=== PATIENT | female | born 1970 | race Caucasian/White ===

== ENCOUNTER 2019-09-29 16:47 | Inpatient (IN) | payer MEDICAID ==
[~2019-09-29] VITALS: Ht 172.7 cm; Wt 81.6 kg
[2019-09-29 17:31] LABS: BASOPHILS 0.1 % (0-2); EOSINOPHILS 0.3 % (0-7); HEMATOCRIT 45.7 % (36.0-48.0); HEMOGLOBIN 15.2 g/dL (12-16); IMMATURE GRANULOCYTES 0.7 % (0-5); LYMPHOCYTES 14.2 % (15-50); MCHC 33.3 g/dL (31.0-37.0); MCV 93.1 fL (80.0-100.0); MEAN PLATELET VOLUME 9.7 fL (7.4-10.4); MONOCYTES 4.6 % (2-11); NEUTROPHILS 80.1 % (40-80); PLATELET COUNT 240 10x3/uL (130-400); RBC 4.91 10x6/uL (4.00-5.40); RDW 14.4 % (11.5-14.5); WBC 17.4 10x3/uL (4.8-10.8)
[2019-09-29 17:44] LABS: SPECIFIC GRAVITY 1.025 (1.005-1.020)
[2019-09-29 17:45] LABS: BACTERIA FEW /hpf (NEGATIVE); BILIRUBIN NEGATIVE (NEGATIVE); EPITHELIAL CELLS OCC /hpf (0-5); GLUCOSE NEGATIVE (NEGATIVE); KETONE NEGATIVE (NEGATIVE); NITRITE NEGATIVE (NEGATIVE); RED CELLS - URINE 0-5 /hpf (0-5); UROBILINOGEN NORMAL (NORMAL); WHITE CELLS - URINE OCC /hpf (NEGATIVE)
[2019-09-29 17:51] LABS: CALC OSMOLALITY 274 mosm/kg (275-300); CALCIUM 8.6 mg/dL (8.5-10.1); CARBON DIOXIDE 28.9 mmol/L (21.0-32.0); CHLORIDE - SERUM 101 mmol/L (98-107); CREATININE - SERUM 1.2 mg/dL (0.6-1.3); GLUCOSE 164 mg/dL (74-106); POTASSIUM - SERUM 3.6 mmol/L (3.5-5.1); SODIUM 135 mmol/L (136-145); UREA NITROGEN 16 mg/dL (7-18); eGFR NON AFRICAN AMERICAN 51 mL/min (90-120)
[2019-09-29 18:00] VITALS: BP 95/64
[2019-09-29 18:01] LABS: ALBUMIN 3.4 g/dL (3.4-5.0); ALKALINE PHOSPHATASE 102 U/L (30-120); ALT (SGPT) 11 U/L (10-68); AMYLASE - SERUM 34 U/L (25-115); BILIRUBIN - TOTAL 0.63 mg/dL (0.2-1.3); LIPASE 139 U/L (73-393); PROTEIN - SERUM 7.1 g/dL (6.4-8.2); TROPONIN-I < 0.017 ng/mL (0.000-0.060)
--- NOTE | 2019-09-29 18:29 | NUR ---
PT STATES SHE IS HAVING RIGHT LOWER QUAD PAIN. WENT TO SPECIALIST THIS MORNING FOR PREOP APPOINTMNET AND WBC WERE HIGH. THE PAIN STARTED YESTERDAY AT 0200. PT IS NAUSEATED. NO VOMITING OR DIARRHEA. ALERT & ORIENTED X 3. PPPX3. VSS. COLOR APPROPRIATE FOR RACE. RESP EVEN UNLABORED.
--- NOTE | 2019-09-29 20:21 | NUR ---
PT IN BED RESTING AT THIS TIME. BREATHS EVEN. NO NEEDS EXPRESSED AT THIS TIME. NO ACUTE DISTRESS NOTED, WILL CONTIUE TO MONITOR.
[2019-09-29 20:32] VITALS: BP 100/65
--- NOTE | 2019-09-29 22:00 | NUR ---
PT LYING SUPINE IN BED RESTING. SIGNIFICANT OTHER AT BEDSIDE. NO ACUTE DISTRESS NOTED. PT DENIES FURTHER NEEDS AT THIS TIME. WILL CONTINUE TO MONITOR.
[2019-09-29 22:08] VITALS: BP 101/63
[2019-09-30 01:15] VITALS: BP 91/54; BMI 27.4
[2019-09-30 05:18] VITALS: BP 88/55
--- NOTE | 2019-09-30 06:27 | NUR ---
REC'D. FROM ER VIA STRETCHER.ASSISTED TO BED AAO X3.DENIES NAUSEA AT PRESENT TIME STATES ABD. PAIN BETTER FOR RIGHT NOW.INTRODUCED TO ROOM.WILL CONTINUE TO MONITOR FOR ANY CHGES IN CURRENT STATUS AND FOLLOW CURRENT PLAN OF CARE.
[2019-09-30 09:37] VITALS: BP 90/57
--- NOTE | 2019-09-30 12:00 | NUR ---
PT RESTING IN BED. NO SIGNS OF DISTRESS. IV TO LEFT HAND PATENT NO REDNESS OR TENDERNESS. COMPLAINS OF PAIN. ADDRESSED. DENIES ANY FURTHER NEED AT THIS TIME. CALL LIGHT IN REACH. BED LOW POSITION. FAMILY AT BEDSIDE AT THIS TIME.
[2019-09-30 13:16] VITALS: BP 99/52
[2019-09-30 13:53] VITALS: BMI 27.3
[2019-09-30 17:32] VITALS: BP 105/59
[2019-09-30 19:46] VITALS: Ht 172.7 cm; Wt 81.6 kg
[2019-09-30 22:12] VITALS: BP 99/67
[2019-10-01 00:56] VITALS: BP 100/73
--- NOTE | 2019-10-01 04:19 | NUR ---
9079) DR CARVALHO HERE CALLED BACK TO GIVE PO MAG CITRATE. INFORMED HAD JUST GIVEN ZOFRAN FOR NAUSEA NO EMESIS.STATES TRY TO GET GET HER TO DRINK MUCH POSSIBLE BE MIDNITE.STATES I CAN'T
[2019-10-01 04:46] VITALS: BP 112/61
[2019-10-01 05:32] LABS: BASOPHILS 0.1 % (0-2); EOSINOPHILS 0.5 % (0-7); HEMATOCRIT 38.3 % (36.0-48.0); HEMOGLOBIN 12.5 g/dL (12-16); IMMATURE GRANULOCYTES 0.6 % (0-5); LYMPHOCYTES 19.7 % (15-50); MCH 30.6 pg (26.0-34.0); MCHC 32.6 g/dL (31.0-37.0); MCV 93.9 fL (80.0-100.0); MEAN PLATELET VOLUME 9.7 fL (7.4-10.4); MONOCYTES 6.4 % (2-11); NEUTROPHILS 72.7 % (40-80); RBC 4.08 10x6/uL (4.00-5.40); RDW 13.9 % (11.5-14.5)
[2019-10-01 05:37] LABS: PLATELET COUNT 170 10x3/uL (130-400); WBC 9.2 10x3/uL (4.8-10.8)
[2019-10-01 05:40] LABS: ANION GAP 9.1 mmol/L (8-16); CALCIUM 7.6 mg/dL (8.5-10.1); CREATININE - SERUM 0.9 mg/dL (0.6-1.3); MAGNESIUM - SERUM 1.9 mg/dL (1.8-2.4); PHOSPHOROUS 2.7 mg/dL (2.5-4.9); POTASSIUM - SERUM 4.1 mmol/L (3.5-5.1)
[2019-10-01 08:45] VITALS: BP 105/66
--- NOTE | 2019-10-01 11:36 | NUR ---
OFF FLOOR AT THIS TIME TO SURGERY SUITE. STABLE CONDITION UPON DEPARTURE.
[2019-10-01 13:22] LABS: HCG SERUM NEGATIVE (NEGATIVE)
[2019-10-01 14:46] VITALS: BP 129/74
--- NOTE | 2019-10-01 15:16 | NUR ---
PATIENT BACK FROM SURGERY. VS STABLE. CL IN REACH. FAMILY IN ROOM.
--- NOTE | 2019-10-01 22:01 | NUR ---
PATIENT IS LYING IN BED, AAOX4, NO RESP. DISTRESS, REPORTS THAT SHE MAINLY FEELS PAIN ONLY WHEN SHE MOVES, PATIENT HAS A MORPINE PUMP. IV SITE TO RIGHT HAND IS PATENT. PATIENT HAS 3 SMALL BAND-AID DRESSINGS TO ABDOMEN THAT ARE CLEAN AND DRY, NO SWELLING TO ABDOMEN. CALL LIGHT WITHIN REACH
[2019-10-01 23:12] VITALS: BP 112/70
[2019-10-02 04:35] VITALS: BP 119/70
[2019-10-02 06:01] LABS: BASOPHILS 0.1 % (0-2); EOSINOPHILS 0.4 % (0-7); HEMATOCRIT 39.4 % (36.0-48.0); HEMOGLOBIN 12.8 g/dL (12-16); IMMATURE GRANULOCYTES 0.4 % (0-5); LYMPHOCYTES 19.5 % (15-50); MCH 30.3 pg (26.0-34.0); MCHC 32.5 g/dL (31.0-37.0); MCV 93.4 fL (80.0-100.0); MEAN PLATELET VOLUME 9.7 fL (7.4-10.4); MONOCYTES 5.4 % (2-11); NEUTROPHILS 74.2 % (40-80); PLATELET COUNT 170 10x3/uL (130-400); RBC 4.22 10x6/uL (4.00-5.40); RDW 13.7 % (11.5-14.5); WBC 10.2 10x3/uL (4.8-10.8)
[2019-10-02 06:36] LABS: ANION GAP 10.8 mmol/L (8-16); CALCIUM 7.8 mg/dL (8.5-10.1); CARBON DIOXIDE 25.1 mmol/L (21.0-32.0); CREATININE - SERUM 0.9 mg/dL (0.6-1.3); MAGNESIUM - SERUM 1.7 mg/dL (1.8-2.4); PHOSPHOROUS 2.8 mg/dL (2.5-4.9); POTASSIUM - SERUM 3.9 mmol/L (3.5-5.1)
[2019-10-02 07:55] VITALS: BP 133/76
[2019-10-02 09:21] VITALS: BP 111/76
--- NOTE | 2019-10-02 10:31 | NUR ---
USING THE DOUBLE END TENON OPERATOR FOR PAIN CONTROL, HAVING TO VOID FREQUENTLY. PASSING GAS, 3 LAP SITES C/D/I.
--- NOTE | 2019-10-02 12:48 | NUR ---
NUTRITION F/U CHART REVIEWED. PT REPORTS SHE DID NOT FEEL LIKE EATING CLEAR LIQUID DIET THIS AM. WILL CONTINUE TO PROVIDE QAMAR, MONITOR PO INTAKE AND PT PROGRESS. RD FOLLOWING
[2019-10-02 13:12] VITALS: BP 109/69
--- NOTE | 2019-10-02 15:17 | NUR ---
NEW IV STARTED TO THE LEFT INNER ARM, 22 G. SHE HAS BEEN WALKING IN TO THE BATHROOM AND BACK. SHE DOES NOT WANT TO WALK IN THE HALLWAY. SHE IS TOLERATING SMALL AMOUNTS OF CLEAR LIQUIDS.
--- NOTE | 2019-10-02 15:33 | NUR ---
SHE HAS BEEN WALKING IN THE HALLWAY NOW. USING THE PLANT AND INSTRUMENT ENGINEER.
[2019-10-02 16:24] VITALS: BP 140/79
--- NOTE | 2019-10-02 16:55 | MORECARE ---
CASE MANAGEMENT DISCHARGE SUMMARY PATIENT: JOCY DAWN UNIT: [id number] ADM DATE: 09/29/19 AGE: 48 : 68 SEX: F ROOM/BED: D.2240 AUTHOR: MARCELINO CEDENO PHYSICIAN: REFERRING PHYSICIAN: CHASE COLLADO DO DATE OF SERVICE: 10/02/19 Discharge Plan Patient Name: JOCY DAWN [facility] [facility] 1970 Planned Disposition: Home Anticipated Discharge Date: 10/03/19 Discharge Date: Expected LOS: 4 Initial Reviewer: [email or web address] Initial Review Date: 10/02/2019 Generated: 10/02/19 5:55 pm External Providers External Provider: Melisa [facility] Next Contact Date: Service Request Date: Service Type: Resolution: Reviewer: Comments: Coverage Notice Reviewer: [email or web address] Paul Waddell Notice Issued Date-Time: 10/02/2019 16:44 Notice Type: Patient Choice Letter Notice Delivered To: Patient Relationship to Patient: Self Evaporator Name: Delivery Method: HAND - Hand Delivered Pratima Days: Prior Verbal Notification: Recipient Understood Notice: Yes Recipient Signature: Yes Med Rec Note Co-signed by Attending: Coverage Notice Comment: MAIK Howard Patient Name: JOCY DAWN Page [id number] at 1655 All edits/amendments must be made on the electronic document DICTATION DATE: 10/02/191654 PRESIDENT/GM PRODUCTION & LIVE EXPERIENCES: ELVIN 10/02/191654 RPT#: [id number] DC DATE: STATUS: ADM IN [facility] [address] [place] [address] END OF REPORT
--- NOTE | 2019-10-02 17:02 | MORECARE ---
CASE MANAGEMENT DISCHARGE SUMMARY PATIENT: JOCY DAWN UNIT: [id number] ADM DATE: 09/29/19 AGE: 48 : 68 SEX: F ROOM/BED: D.[facility] AUTHOR: MARCELINO CEDENO PHYSICIAN: REFERRING PHYSICIAN: CHASE COLLADO DO DATE OF SERVICE: 10/02/19 Discharge Plan Patient Name: JOCY DAWN Facility: [facility]:[place] : 1970 Planned Disposition: Home Anticipated Discharge Date: 10/03/19 Discharge Date: Expected LOS: 4 Initial Reviewer: [email or web address] Initial Review Date: 10/02/2019 Generated: 10/02/19 6:02 pm DCPIA - Discharge Planning Initial Assessment Updated by EVE: Leslee Waddell on 10/02/19 4:56 pm * Is the patient Alert and Oriented? Yes * How many steps to enter\exit or inside your home? 10/10 flight * PCP Dr[address] * [facility] * Preadmission Environment Home with Family * ADLs Independent * Equipment None * List name and contact numbers for known caregivers / representatives who currently or will assist patient after discharge: Dyan [facility] mate - [phone] * Verbal permission to speak to the caregivers and representatives has been obtained from the patient. Yes * Community resources currently utilized None * Additional services required to return to the preadmission environment? No * Can the patient safely return to the preadmission environment? Yes * Has this patient been hospitalized within the prior 30 days at any hospital? No Coverage Notice Reviewer: [id number] - Leslee Waddell Notice Issued Date-Time: 10/02/2019 16:44 Notice Type: Patient Choice Letter Notice Delivered To: Patient Relationship to Patient: Self Property Investor Name: Delivery Method: HAND - Hand Delivered Pratima Days: Prior Verbal Notification: Recipient Understood Notice: Yes Recipient Signature: Yes Med Rec Note Co-signed by Attending: Coverage Notice Comment: MAIK for Lee Sy DP export: 10/02/19 3:55 p Patient Name: JOCY DAWN Page 70727 at 1702 All edits/amendments must be made on the electronic document DICTATION DATE: 10/02/191701 SILK SCREEN PRINTER: ELVIN 10/02/191701 RPT#: [id number] DC DATE: STATUS: ADM IN [facility] [address] [place] [address] END OF REPORT
--- NOTE | 2019-10-02 17:13 | MORECARE ---
CASE MANAGEMENT DISCHARGE SUMMARY PATIENT: JOCY DAWN UNIT: [id number] ADM DATE: 09/29/19 AGE: 48 : 68 SEX: F ROOM/BED: D.2240 AUTHOR: WILIANDOC PHYSICIAN: REFERRING PHYSICIAN: CHAES COLLADO DO DATE OF SERVICE: 10/02/19 Discharge Plan Patient Name: JOCY DAWN Facility: [facility]:[place] : 1970 Planned Disposition: Home Anticipated Discharge Date: 10/03/19 Discharge Date: Expected LOS: 4 Initial Reviewer: [email or web address] Initial Review Date: 10/02/2019 Generated: 10/02/19 6:12 pm Comments DCP- Discharge Planning Updated by [email or web address]: Leslee Waddell on 10/02/19 4:[address] Patient Name: JOCY DAWN Admission Status: ER Accout number: [id number] Admission Date: 09-29-2019 : 1970 Admission Diagnosis: Attending: HCASE COLLADO Current LOS: 3 Anticipated DC Date: 10-03-2019 Planned Disposition: Home [place] Insurance[place] PR[place] Discharge Planning Comments: CM met with patient to discuss discharge planning/needs. She lives with a room mate. States she lives in a 2 story home. States she will be staying down stairs on the first floor. She states that a walker could be helpful for her to assist in ambulation at home. I spoke with Stevo Anders and he gave me the verbal order. I called Lee and order faxed. I informed Lee that she is discharging tomorrow. CM will continue to follow and assist with discharge planning/needs. Apparatus Operator: Leslee Waddell DCPIA - Discharge Planning Initial Assessment Updated by [id number]: Leslee Waddell on 10/02/19 4:56 pm * Is the patient Alert and Oriented? Yes * How many steps to enter\exit or inside your home? 10/10 flight * PCP Dr[address] Street * Pharmacy [facility] on [address] * Preadmission Environment Home with Family * ADLs Independent * Equipment None * List name and contact numbers for known caregivers / representatives who currently or will assist patient after discharge: Dyan heaton mate - [phone] * Verbal permission to speak to the caregivers and representatives has been obtained from the patient. Yes * Community resources currently utilized None * Additional services required to return to the preadmission environment? No * Can the patient safely return to the preadmission environment? Yes * Has this patient been hospitalized within the prior 30 days at any hospital? No Coverage Notice Reviewer: [id number] Paul Waddell Notice Issued Date-Time: 10/02/2019 16:44 Notice Type: Patient Choice Letter Notice Delivered To: Patient Relationship to Patient: Self Ic Design Manager Name: Delivery Method: HAND - Hand Delivered Pratima Days: Prior Verbal Notification: Recipient Understood Notice: Yes Recipient Signature: Yes Med Rec Note Co-signed by Attending: Coverage Notice Comment: MAIK for Lee Sy DP export: 10/02/19 4:02 p Patient Name: JOCY DAWN Page [id number] at 1713 All edits/amendments must be made on the electronic document DICTATION DATE: 10/02/191711 GLASS DESIGNER: ELVIN 10/02/191711 RPT#: [id number] DC DATE: STATUS: ADM IN [facility] [address] [place] [address] END OF REPORT
[2019-10-02 19:24] LABS: BILIRUBIN NEGATIVE (NEGATIVE); GLUCOSE NEGATIVE (NEGATIVE); KETONE MODERATE mg/dL (NEGATIVE); NITRITE NEGATIVE (NEGATIVE); SPECIFIC GRAVITY 1.015 (1.005-1.020); UROBILINOGEN NORMAL (NORMAL)
[2019-10-02 19:30] VITALS: BP 111/88
[2019-10-03 00:30] VITALS: BP 113/86
--- NOTE | 2019-10-03 02:46 | NUR ---
PATIENT IS RESTING OFF AND ON. SHE DENIES PAIN. BAND-AID DRESSINGS TO ABDOMEN ARE DRY AND INTACT. IV SITE TO LEFT FOREARM IS WITHOUT REDNESS OR TENDERNESS. CALL LIGHT WITHIN REACH. WILL CONTINUE TO MONITOR
[2019-10-03 05:00] VITALS: BP 114/88
[2019-10-03 06:31] LABS: BASOPHILS 0.1 % (0-2); HEMATOCRIT 37.8 % (36.0-48.0); HEMOGLOBIN 12.4 g/dL (12-16); IMMATURE GRANULOCYTES 0.5 % (0-5); LYMPHOCYTES 22.6 % (15-50); MCH 30.6 pg (26.0-34.0); MCHC 32.8 g/dL (31.0-37.0); MCV 93.3 fL (80.0-100.0); MEAN PLATELET VOLUME 9.8 fL (7.4-10.4); MONOCYTES 6.5 % (2-11); NEUTROPHILS 69.3 % (40-80); PLATELET COUNT 173 10x3/uL (130-400); RBC 4.05 10x6/uL (4.00-5.40); RDW 13.5 % (11.5-14.5); WBC 8.7 10x3/uL (4.8-10.8)
[2019-10-03 06:46] LABS: CALC OSMOLALITY 269 mosm/kg (275-300); CALCIUM 7.7 mg/dL (8.5-10.1); CARBON DIOXIDE 23.5 mmol/L (21.0-32.0); CHLORIDE - SERUM 104 mmol/L (98-107); CREATININE - SERUM 0.8 mg/dL (0.6-1.3); GLUCOSE 79 mg/dL (74-106); MAGNESIUM - SERUM 1.8 mg/dL (1.8-2.4); PHOSPHOROUS 2.8 mg/dL (2.5-4.9); POTASSIUM - SERUM 3.9 mmol/L (3.5-5.1); SODIUM 136 mmol/L (136-145); UREA NITROGEN 9 mg/dL (7-18); eGFR NON AFRICAN AMERICAN 81 mL/min (90-120)
[2019-10-03 08:37] VITALS: BP 116/75
--- NOTE | 2019-10-03 09:18 | NUR ---
PT ALERT X 4. BREATH SOUNDS CLEAR BILAT. 3 LAP SITES TO ABDOMEN, BANDAIDS IN PLACE, NO REDDNESS OR DRAINAGE NOTED. ABDOMEN TENDER, PT REPORTING PAIN OF 8/10, REMINDED TO USE PHYSICAL SCIENCE AIDE NEEDED. IV TO LEFT FOREARM, PATENT, DRESSING CDI. BED LOW, CALL LIGHT IN REACH. NO OTHER NEEDS AT THIS TIME.
[2019-10-03 13:13] VITALS: BP 124/67
[2019-10-03 16:18] VITALS: BP 120/68
--- NOTE | 2019-10-03 19:00 | NUR ---
BEDSIDE REPORT RECEIVED AND CARE OF PT ASSUMED. PT LYING IN LOW ARAIZA'S POSITION WITH EYES CLOSED. IV TO RIGHT HAND PATENT WITH NS INFUSING AT 50 ML/HR. X3 LAP SITES WELL APPROXIMATED. WILL MONITOR FOR NEEDS.
[2019-10-03 19:58] VITALS: BP 93/56
--- NOTE | 2019-10-03 21:18 | NUR ---
HS MEDICATIONS GIVEN TO INCLUDE NORCO 5 PO PER REQUEST FOR PAIN. WILL CONTINUE TO MONITOR FOR NEEDS.
[2019-10-04] VITALS: BP 105/63
[2019-10-04 04:00] VITALS: BP 106/68
[2019-10-04 06:47] LABS: ANION GAP 10.2 mmol/L (8-16); CALCIUM 7.8 mg/dL (8.5-10.1); CARBON DIOXIDE 25.6 mmol/L (21.0-32.0); CREATININE - SERUM 0.9 mg/dL (0.6-1.3); MAGNESIUM - SERUM 1.8 mg/dL (1.8-2.4); PHOSPHOROUS 2.6 mg/dL (2.5-4.9); POTASSIUM - SERUM 3.8 mmol/L (3.5-5.1)
[2019-10-04 06:49] LABS: BASOPHILS 0.1 % (0-2); IMMATURE GRANULOCYTES 0.7 % (0-5); LYMPHOCYTES 25.7 % (15-50); MCH 30.5 pg (26.0-34.0); MCHC 33.3 g/dL (31.0-37.0); MCV 91.6 fL (80.0-100.0); MONOCYTES 6.6 % (2-11); NEUTROPHILS 65.9 % (40-80); PLATELET COUNT 180 10x3/uL (130-400); RBC 3.93 10x6/uL (4.00-5.40); RDW 13.5 % (11.5-14.5); WBC 8.4 10x3/uL (4.8-10.8)
[2019-10-04 08:40] VITALS: BP 120/83
--- NOTE | 2019-10-04 09:47 | NUR ---
PT ALERT X 4. BREATH SOUNDS CLEAR BILAT. IV TO RIGHT HAND, PATENT, DRESSING CDI. 3 LAP SITES TO ABDOMEN, BANDAIDS IN PLACE. PT REPORTING PAIN OF 8/10, NOT WANTING PAIN MEDICATION AT THIS TIME. PT REPORTING NO BM'S YET, BOWEL SOUNDS ACTIVE. SCD'S IN USE. BED LOW, CALL LIGHT IN REACH. NO OTHER NEEDS AT THIS TIME.
[2019-10-04 12:33] VITALS: BP 117/73
[2019-10-04 17:21] VITALS: BP 117/71
--- NOTE | 2019-10-04 19:00 | NUR ---
BEDSIDE REPORT RECEIVED AND CARE OF PT ASSUMED. PT LYING IN LOW ARAIZA'S POSITION. IV TO RIGHT HAND PATENT WITH NS INFUSING AT 50 ML/HR...CHANGED TO KVO PER NEW ORDER. PT STATES NO BM TODAY BUT IS PASSING GAS. WILL MONITOR FOR NEEDS.
[2019-10-04 19:30] VITALS: BP 109/68
--- NOTE | 2019-10-04 21:20 | NUR ---
HS MEDICATIONS GIVEN TO INCLUDE NORCO PO PER PRN ORDER, PER REQUEST FOR PAIN. WILL CONTINUE TO MONITOR FOR NEEDS.
[2019-10-05] VITALS: BP 101/62
[2019-10-05 04:00] VITALS: BP 117/72
[2019-10-05 05:52] LABS: BASOPHILS 0.2 % (0-2); EOSINOPHILS 1.3 % (0-7); HEMATOCRIT 35.9 % (36.0-48.0); HEMOGLOBIN 12.1 g/dL (12-16); IMMATURE GRANULOCYTES 0.7 % (0-5); LYMPHOCYTES 24.3 % (15-50); MCH 30.6 pg (26.0-34.0); MCHC 33.7 g/dL (31.0-37.0); MCV 90.9 fL (80.0-100.0); MEAN PLATELET VOLUME 9.9 fL (7.4-10.4); MONOCYTES 6.4 % (2-11); NEUTROPHILS 67.1 % (40-80); PLATELET COUNT 175 10x3/uL (130-400); RBC 3.95 10x6/uL (4.00-5.40); RDW 13.6 % (11.5-14.5); WBC 8.6 10x3/uL (4.8-10.8)
[2019-10-05 06:34] LABS: CALC OSMOLALITY 274 mosm/kg (275-300); CALCIUM 8.1 mg/dL (8.5-10.1); CARBON DIOXIDE 25.2 mmol/L (21.0-32.0); CHLORIDE - SERUM 107 mmol/L (98-107); CREATININE - SERUM 0.8 mg/dL (0.6-1.3); GLUCOSE 91 mg/dL (74-106); MAGNESIUM - SERUM 1.9 mg/dL (1.8-2.4); PHOSPHOROUS 3.2 mg/dL (2.5-4.9); POTASSIUM - SERUM 3.9 mmol/L (3.5-5.1); SODIUM 138 mmol/L (136-145); UREA NITROGEN 9 mg/dL (7-18); eGFR NON AFRICAN AMERICAN 81 mL/min (90-120)
--- NOTE | 2019-10-05 07:05 | NUR ---
ALERT AND ORIENTED, RESTING IN BED WITH EYES OPEN. NO C/O PAIN. NO S/S OF ACUTE DISTRESS NOTED. POD #4 CECOECTOMY, 3 LAP SITES, C/D/I. PT PASSING GAS. SCDS PRESENT. IV TO LEFT HAND, NS INFUSING @ 20ML/HR. SITE PATENT WITHOUT REDNESS OR SWELLING. DENIES ANY NEEDS AT THIS TIME. CALL LIGHT IN REACH. WILL CONTINUE TO MONITOR.
[2019-10-05 08:50] VITALS: BP 109/58
--- NOTE | 2019-10-05 10:17 | NUR ---
I have reviewed this patient and I concur with the Shift Assessment completed by the Licensed Practical Nurse today this shift.
[2019-10-05 16:19] VITALS: BP 104/73
--- NOTE | 2019-10-05 18:21 | NUR ---
ALERT AND ORIENTED, SITTING UP IN WHEELCHAIR. NO C/O PAIN. NO S/S OF ACUTE DISTRESS NOTED. PATIENT STATED HAD BOWEL MOVEMENT X2 TODAY. DENIES ANY NEEDS AT THIS TIME. CALL LIGHT IN REACH. WILL CONTINUE TO MONITOR.
--- NOTE | 2019-10-05 19:00 | NUR ---
BEDSIDE REPORT RECEIVED AND CARE OF PT ASSUMED. PT LYING IN HIGH ARAIZA'S POSITION VISITING WITH FAMILY MEMBERS AT THIS TIME. IV TO LEFT HAND PATENT WITH NS INFUSING AT KVO. WILL MONITOR FOR NEEDS.
[2019-10-05 19:30] VITALS: BP 100/58
--- NOTE | 2019-10-05 19:33 | NUR ---
PAGED DR CARVALHO PER FAMILY REQUEST...WAITING ON HIM TO ROUND.
--- NOTE | 2019-10-05 21:00 | NUR ---
PT REFUSED MIRALAX FOR HS SHE HAS HAD MANY BM'S THIS AFTERNOON.
[2019-10-06] VITALS: BP 106/65
[2019-10-06 04:00] VITALS: BP 110/68
--- NOTE | 2019-10-06 07:10 | NUR ---
ALERT AND ORIENTED, RESTING IN BED WITH EYES OPEN. NO C/O PAIN. NO S/S OF ACUTE DISTRESS NOTED. POD #5 CECETOMY AND LAP APPY, 3 LAP SITES TO ABDOMEN C/D/I. IV TO LEFT HAND, NS INFUSING @ KVO. SITE PATENT WITHOUT REDNESS OR SWELLING. DENIES ANY NEEDS AT THIS TIME. CALL LIGHT IN REACH. WILL CONTINUE TO MONITOR.
[2019-10-06 08:11] LABS: CEA 0.9 ng/mL (0.0-4.7)
[2019-10-06 08:35] VITALS: BP 104/68
[2019-10-06 09:10] LABS: HEPATITIS C ANTIBODY 0.2 S/CO RAT (0.0-0.9)
--- NOTE | 2019-10-06 10:38 | NUR ---
I have reviewed this patient and I concur with the Shift Assessment completed by the Licensed Practical Nurse today this shift.
[2019-10-06] MEDS ORDERED: MIRALAX17 GM PO (12:19)
[2019-10-06] MEDS ORDERED: HYDROCODON-ACE1 EAC7 PO (13:20)
[2019-10-06 13:23] VITALS: BP 114/74
--- NOTE | 2019-10-06 13:30 | MORECARE ---
CASE MANAGEMENT DISCHARGE SUMMARY PATIENT: JOCY DAWN UNIT: [id number] ADM DATE: 09/29/19 AGE: 48 : 68 SEX: F ROOM/BED: D.2240 AUTHOR: WILIANDOC PHYSICIAN: REFERRING PHYSICIAN: CHASE COLLADO DO DATE OF SERVICE: 10/06/19 Discharge Plan Patient Name: JOCY DAWN Facility: [facility]:[place] : 1970 Planned Disposition: Home Anticipated Discharge Date: 10/03/19 Discharge Date: Expected LOS: 4 Initial Reviewer: [email or web address] Initial Review Date: 10/02/2019 Generated: 10/06/19 2:30 pm Comments DCP- Discharge Planning Updated by [email or web address]: Lesleealla Waddell on 10/06/19 12:[address] Patient Name: JOCY DAWN Encounter No: [id number] : 1970 Primary Insurance: [employer] PRIVATE OPTIONS NAIF Anticipated DC Date: 10-03-2019 Planned Disposition: Home External Planned Provider: : DCP follow-up note: Patient and family in agreement with discharge plan. No changes to plan. She has her walker in the room. Case management will follow and assist as needed. Leslee Waddell DCP- Discharge Planning Updated by [id number]: Leslee Waddell on 10/02/19 4:[address] Patient Name: JOCY DAWN Admission Status: ER Accout number: [id number] Admission Date: 09-29-2019 : 1970 Admission Diagnosis: Attending: CHASE COLLADO Current LOS: 3 Anticipated DC Date: 10-03-2019 Planned Disposition: Home Primary Insurance: [employer] PRIVATE OPTIONS NAIF Discharge Planning Comments: CM met with patient to discuss discharge planning/needs. She lives with a room mate. States she lives in a 2 story home. States she will be staying down stairs on the first floor. She states that a walker could be helpful for her to assist in ambulation at home. I spoke with Stevo Anders and he gave me the verbal order. I called Lee and order faxed. I informed Lee that she is discharging tomorrow. CM will continue to follow and assist with discharge planning/needs. Barge Engineer: Leslee Waddell DCPIA - Discharge Planning Initial Assessment Updated by [email or web address]: Leslee Waddell on 10/02/19 4:56 pm * Is the patient Alert and Oriented? Yes * How many steps to enter\exit or inside your home? 10/10 flight * PCP Dr[address] * Pharmacy [facility] on [address] * Preadmission Environment Home with Family * ADLs Independent * Equipment None * List name and contact numbers for known caregivers / representatives who currently or will assist patient after discharge: Dyan Parisi [facility] - [phone] * Verbal permission to speak to the caregivers and representatives has been obtained from the patient. Yes * Community resources currently utilized None * Additional services required to return to the preadmission environment? No * Can the patient safely return to the preadmission environment? Yes * Has this patient been hospitalized within the prior 30 days at any hospital? No Coverage Notice Reviewer: [id number] - Leslee Waddell Notice Issued Date-Time: 10/02/2019 16:44 Notice Type: Patient Choice Letter Notice Delivered To: Patient Relationship to Patient: Self Mercury Washer Name: Delivery Method: HAND - Hand Delivered Pratima Days: Prior Verbal Notification: Recipient Understood Notice: Yes Recipient Signature: Yes Med Rec Note Co-signed by Attending: Coverage Notice Comment: MAIK for Lee Sy DP export: 10/02/19 4:13 p Patient Name: JOCY DAWN Page 11214 at 1330 All edits/amendments must be made on the electronic document DICTATION DATE: 10/06/19 1330 MARINE PIPE WELDER: ELVIN 10/06/19 1330 RPT#: [id number] DC DATE: STATUS: ADM IN [facility] [address] [place] [address] END OF REPORT
--- NOTE | 2019-10-06 14:27 | NUR ---
DISCHARGED PATIENT HOME WITH FAMILY VIA WHEELCHAIR. DISCONTINUED IV, CATHETER TIP INTACT. WENT OVER DISCHARGE INSTRUCTIONS WITH PATIENT, VERBALIZED UNDERSTANDING. DENIES ANYTHING FURTHER.
--- NOTE | 2019-10-07 15:19 | MORECARE ---
CASE MANAGEMENT DISCHARGE SUMMARY PATIENT: JOCY DAWN UNIT: [id number] ADM DATE: 09/29/19 AGE: 48 : 68 SEX: F ROOM/BED: D.2240 AUTHOR: WILIAN,DOC PHYSICIAN: REFERRING PHYSICIAN: CHASE COLLADO DO DATE OF SERVICE: 10/07/19 Discharge Plan Patient Name: JOCY DAWN Facility: [facility]:[place] : 1970 Planned Disposition: Home Anticipated Discharge Date: 10/03/19 Discharge Date: 10/06/2019 Expected LOS: 4 Initial Reviewer: [email or web address] Initial Review Date: 10/02/2019 Generated: 10/07/19 4:18 pm Comments DCP- Discharge Planning Updated by [email or web address]: Leslee Waddell on 10/06/19 12:[address] Patient Name: JOCY DAWN Encounter No: [id number] : 1970 Primary Insurance: [employer] PRIVATE OPTIONS NAIF Anticipated DC Date: 10-03-2019 Planned Disposition: Home External Planned Provider: : DCP follow-up note: Patient and family in agreement with discharge plan. No changes to plan. She has her walker in the room. Case management will follow and assist as needed. Leslee Waddell DCP- Discharge Planning Updated by [id number]: Leslee Waddell on 10/02/19 4:[address] Patient Name: JOCY DAWN Admission Status: ER Accout number: [id number] Admission Date: 09-29-2019 : 1970 Admission Diagnosis: Attending: CHASE COLLADO Current LOS: 3 Anticipated DC Date: 10-03-2019 Planned Disposition: Home Primary Insurance: [employer] [place] PRIVATE OPTIONS NAIF Discharge Planning Comments: CM met with patient to discuss discharge planning/needs. She lives with a room mate. States she lives in a 2 story home. States she will be staying down stairs on the first floor. She states that a walker could be helpful for her to assist in ambulation at home. I spoke with Stevo Anders and he gave me the verbal order. I called Lee and order faxed. I informed Lee that she is discharging tomorrow. CM will continue to follow and assist with discharge planning/needs. Paper Baling Machine Operator: Leslee Waddell DCPIA - Discharge Planning Initial Assessment Updated by [email or web address]: Lelsee Waddell on 10/02/19 4:56 pm * Is the patient Alert and Oriented? Yes * How many steps to enter\exit or inside your home? 10/10 flight * PCP Dr[address] Street * Pharmacy [facility] on [address] * Preadmission Environment Home with Family * ADLs Independent * Equipment None * List name and contact numbers for known caregivers / representatives who currently or will assist patient after discharge: Dyan Parisi room [facility] - [phone] * Verbal permission to speak to the caregivers and representatives has been obtained from the patient. Yes * Community resources currently utilized None * Additional services required to return to the preadmission environment? No * Can the patient safely return to the preadmission environment? Yes * Has this patient been hospitalized within the prior 30 days at any hospital? No Coverage Notice Reviewer: [id number] - Leslee Waddell Notice Issued Date-Time: 10/02/2019 16:44 Notice Type: Patient Choice Letter Notice Delivered To: Patient Relationship to Patient: Self Quality Assurance Lead Name: Delivery Method: HAND - Hand Delivered Pratima Days: Prior Verbal Notification: Recipient Understood Notice: Yes Recipient Signature: Yes Med Rec Note Co-signed by Attending: Coverage Notice Comment: MAIK for Lee Sy DP export: 10/06/19 12:30 p Patient Name: JOCY DAWN Page [id number] at 1519 All edits/amendments must be made on the electronic document DICTATION DATE: 10/07/19 1518 RELIGIOUS EDUCATION DIRECTOR: ELVIN 10/07/19 1518 RPT#: [id number] DC DATE:10/06/19 STATUS: DIS IN [facility] [address] [place] [address] END OF REPORT
[2019-10-08 11:10] LABS: LUPUS - INTERPRETATION Comment: (())
--- NOTE | 2019-10-08 17:21 | PN ---
PATIENT:JOCY DAWN MEDICAL RECORD: [id number] LOCATION:D.[facility] ADMISSION DATE: 09/29/19 PROGRESS NOTE DATE OF SERVICE: 10/06/2019 I wanted to dictate this progress note and review today's events: I received a page from the stewardesses teacher on the med/surg stating that Ms. Dawn was upset and wanted to be dismissed home. I know that we were really just waiting to see if she could tolerate a regular diet and then we were going to dismiss her home per my conversation with her yesterday. She was able to tolerate a diet. She has had a bowel function. Her pain is controlled. I went to her bedside and was confronted by her friend, who did the vast majority of the talking. She stated that no one has been telling them what has been going on and what kind of operation she underwent. This is not factual in that postoperatively, I did inform the patient of the operation and of the preliminary pathologic findings as they were verbally related to me by the pathologist. I again reviewed with the patient and her friend how the operation is performed. The friend was very upset. The patient states that she has a postconcussive syndrome, so that may be a confounding factor, in that I do not know the state of her cognitive function or her memory. They were upset about several things: 1) They felt that she was not getting the care that she deserved and they are going to seek the advice of other physicians. It sounds like they will be seeing another surgeon and will not be following up with me. I gave the patient discharge instructions including instructions to not to lift or strain for fear that she could develop an incisional hernia. 2) Last week, I told them that because the preliminary pathologic diagnosis that of a potentially lymphoma, carcinoma or carcinoid. This was an unexpected finding as I told the patient. I told her that because this is an unexpected finding that we would seek an outside second opinion. The patient's friend was very upset. She stated that I lied to her and that the tissue had not been sent off. I told her that I had only said that we would send it off, not that it had been sent off. Obviously, we have a difference of opinion on what she thinks I said and what I think I said. Anyhow, it is my understaning that typically we wait to get the pathology results back here and then we would send the tissue off to be evaluated by a second pathologist; and frequently that is at [facility]. Anyhow, I spoke with Dr. Miranda today. We again reviewed the final pathology results, which revealed no malignancy. I asked him to send tissue off to [facility] to be evaluated there and he stated that he would. It appears that the patient's friend had been down in administration earlier today, had filed a complaint and one of the things that she complained about is that the tissue had not yet been sent off. Another issue is that this is Saturday, and over the weekend there may be a down time where tissue might not be sent off to another facility. Anyhow, she had spoken to administration and they had already contacted Dr. Miranda to send the tissue PROGRESS NOTE [id number] JOCY DAWN off to [facility]. I again reviewed with them the final pathology results here. I told them that the final results are different than the preliminary results. I told them that unless the patient has a stool culture which is very unusual, the operation that she received was likely curative. I told them that I could obtain a stool culture and they stated that they will see Dr. Mccarthy for this. The patient has some type of blood dyscrasia and sees a telecommunications network planner in [place]. Dr. Mercedes wants to order some hematology labs here before the patient is dismissed home. I was going to dismiss the patient home on [place] as well as [place]; however, the patient has diarrhea predominant IBS and states that she will not need a stool softener, so she will be going home with hydrocodone. I have given her wound care instructions. I told her that if she sees me, I would like to see her in the office in 2-3 weeks and that if she sees another surgeon then the sutures at the umbilicus would not need to be cut out, they will just fall out on their own. 3) The patient and her friend wanted to know why she stayed here over the weekend. My thinking was that if the pathology shows that the patient has a carcinoid or lymphoma, it is likely that she would not need a further resection without some type of workup. If the lesion was a carcinoma, then the patient would require a further operation where the right colon is removed as well as lymph nodes that will be examined for metastatic malignancy. Keeping her here and doing the operation early this week, either Saturday or Saturday, would prevent her from having to undergo another bowel prep and would accelerate the process of undergoing a definitive cancer procedure, which it appears now that the patient does not need. I did not see the final pathology results until last evening and after I saw them I went and spoke to the patient. TRANSINT:[id number] Voice Confirmation ID: [id number] DOCUMENT ID: [id number] MELODY CARVALHO MD at 1721 CC: SAGRARIO MCCARTHY MD, PA MERCEDES MD and JENELLE SUMMERS [id number] DICTATION DATE: 10/06/191715 CORE CLEANER: 10/07/19 0838 DIS IN 10/06/19 [facility] [address] [place] [address]
--- NOTE | 2019-10-08 17:21 | OP ---
PATIENT NAME: JOCY DAWN MEDICAL RECORD: [id number] :68 LOCATION:D.[facility] [address] ADMISSION DATE:09/29/19 SURGEON: MELODY CARVALHO MD DATE OF OPERATION: 10/01/2019 PREOPERATIVE DIAGNOSIS: Inflammatory process involving the cecum. POSTOPERATIVE DIAGNOSIS: Inflammatory process involving the cecum. PROCEDURE: Laparoscopic cecectomy. SURGEON: Melody Carvalho MD INSULATOR HELPER: None. BLOOD LOSS: Please see the anesthesia sheet. COMPLICATIONS: None. The risks, possible complications and alternatives to the procedure were explained to the patient. She elects to proceed. I told her that this may be a cecal process or this may be an appendiceal process. We specifically discussed the risk of bleeding requiring emergency reoperation, infection, intestinal injury. I initially thought that this note had been dictated. I have contacted medical records. It appears that this has not been dictated. Today is 10/06/2019. The patient is actually being dismissed home today. OPERATIVE COURSE: The patient was conveyed to the operating room urgently on 10/01/2019. General anesthesia was induced by the anesthesia staff. The abdomen was sterilely prepped and draped. A small skin collin was accomplished in the left upper quadrant. A Veress needle was inserted through the skin collin into the peritoneal cavity. CO2 insufflation was begun. Once a sufficient pneumoperitoneum had been achieved, a 5-mm trocar was inserted in the lower abdomen. Another 5-mm trocar was inserted in the left lower quadrant and another 12-mm trocar was inserted at the umbilicus. An abdominal survey was undertaken. The appendix was injected, but it did not appear to be acutely inflamed. The mesoappendix was not inflamed. The cecum was indurated and inflamed, particularly laterally. I felt that a cecectomy would be in the patient's best interest rather than a formal right colectomy. I ran the last 2 feet of small bowel and identified no Meckel's diverticulum. I incised along the right white line of Toldt. A folded the cecum medially. The mesoappendix was taken down with the laparoscopic EnSeal device. I stapled across the cecum with the Endo-KARINA type stapler utilizing blue loads. The mass-like effect was essentially stapled away as well during the use of the Endo-KARINA stapler. The appendix along with the attached cecum was then placed within a bag retrieval device and was withdrawn through the umbilical fascia defect. OPERATIVE REPORT [id number] JOCY DAWN The 12-mm trocars were placed and the abdomen reinsufflated. I irrigated and aspirated the right lower quadrant. There was no bleeding even at low pressure of 8. The Flakito-Isreal suture closure device and 0 Vicryl sutures were used to close the umbilical fascia. All trocars were removed and the abdomen desufflated. The skin at the umbilicus was closed with interrupted 4-0 Vicryl Rapide sutures. The other skin incisions were closed with interrupted intracuticular 3-0 Vicryls. Benzoin and Steri-Strips were applied. The patient was then extubated and conveyed to post-anesthesia care unit where she was in stable condition. TRANSINT:[id number] Voice Confirmation ID: [id number] DOCUMENT ID: [id number] MELODY CARVALHO MD at 1721 CC: [id number] DICTATION DATE: 10/06/19 1322 BEER MERCHANT: 10/06/19 2320 DIS IN 10/06/19 [facility] [address] [place] [address]
[2019-10-09 20:07] LABS: FACTOR II DNA ANALYSIS Negative (())
== END 2019-10-06 14:28 | disposition home or self-care (01) | DRG 330 ==
LOC: D.ER 16:47 → D.MS 22:42
PROVIDERS: Family Medicine; Internal Medicine Hematology & Oncology; Surgery; ADMIT Family Medicine; ATTEND Family Medicine
PROC: 0DTJ4ZZ Resection of Appendix, Percutaneous Endoscopic Approach (ICD-10-PCS; 2019-10-01)
PROC: 0DTH4ZZ Resection of Cecum, Percutaneous Endoscopic Approach (ICD-10-PCS; principal; 2019-10-01 11:45)
DX: K57.32 Diverticulitis of large intestine without perforation or abscess without bleeding (principal); E87.1 Hypo-osmolality and hyponatremia; K56.7 Ileus, unspecified; K21.9 Gastro-esophageal reflux disease without esophagitis; K63.89 Other specified diseases of intestine

== ENCOUNTER 2019-10-08 20:52 | Inpatient (IN) | payer BC ==
[~2019-10-08] VITALS: Ht 172.7 cm; Wt 84.8 kg
[~2019-10-08 20:52] MED LIST: HYDROCODON-ACE1 EAC7 PO; MIRALAX17 GM PO
[2019-10-08 21:42] LABS: BASOPHILS 0.2 % (0-2); HEMATOCRIT 38.9 % (36.0-48.0); IMMATURE GRANULOCYTES 1.1 % (0-5); LYMPHOCYTES 22.8 % (15-50); MCHC 33.4 g/dL (31.0-37.0); MCV 92.6 fL (80.0-100.0); MEAN PLATELET VOLUME 9.7 fL (7.4-10.4); MONOCYTES 4.5 % (2-11); NEUTROPHILS 70.4 % (40-80); RDW 13.8 % (11.5-14.5); WBC 10.7 10x3/uL (4.8-10.8)
[2019-10-08 21:43] LABS: PLATELET COUNT 232 10x3/uL (130-400)
[2019-10-08 21:57] LABS: CALC OSMOLALITY 279 mosm/kg (275-300); CALCIUM 8.3 mg/dL (8.5-10.1); CHLORIDE - SERUM 104 mmol/L (98-107); GLUCOSE 98 mg/dL (74-106); POTASSIUM - SERUM 3.9 mmol/L (3.5-5.1); SODIUM 140 mmol/L (136-145); UREA NITROGEN 16 mg/dL (7-18); eGFR NON AFRICAN AMERICAN 62 mL/min (90-120)
[2019-10-08 22:02] LABS: ALBUMIN 2.8 g/dL (3.4-5.0); ALKALINE PHOSPHATASE 75 U/L (30-120); ALT (SGPT) 25 U/L (10-68); AMYLASE - SERUM 45 U/L (25-115); BILIRUBIN - TOTAL 0.24 mg/dL (0.2-1.3); LIPASE 229 U/L (73-393); PROTEIN - SERUM 6.1 g/dL (6.4-8.2); TROPONIN-I < 0.017 ng/mL (0.000-0.060)
--- NOTE | 2019-10-08 23:00 | NUR ---
PT LYING ON LEFT LATERAL SIDE IN BED, NO ACUTE DISTRESS NOTED. PT DENIES ANY COMPLAINTS AT THIS TIME. WILL CONTINUE TO MONITOR.
[2019-10-08 23:01] LABS: BILIRUBIN NEGATIVE (NEGATIVE); GLUCOSE 250 mg/dL (NEGATIVE); KETONE NEGATIVE (NEGATIVE); NITRITE NEGATIVE (NEGATIVE); SPECIFIC GRAVITY 1.015 (1.005-1.020); UROBILINOGEN NORMAL (NORMAL)
[2019-10-08 23:05] LABS: BACTERIA FEW /hpf (NEGATIVE); EPITHELIAL CELLS 0-5 /hpf (0-5); RED CELLS - URINE 0-5 /hpf (0-5); WHITE CELLS - URINE 0-5 /hpf (NEGATIVE)
[2019-10-09 01:47] VITALS: BP 111/64
--- NOTE | 2019-10-09 02:51 | NUR ---
PT ARRIVED TO THE FLOOR. ALERT AND ORIENTED. NO SIGNS OF DISTRESS. BREATHING EVEN AND UNLABORED. PT STATES NO PROBLEMS AT THIS TIME. IV SITE RT AC DRESSING CLEAN DRY AND INTACT. NO SIGNS OF INFECTION OR INFULTRATION. ABX GOING AT THIS TIME. SKIN CLEAN DRY AND INTACT. ABD LAP SITES X3 CLEAN DRY AND INTACT. ABD TENDER TO PALPATION. NO LOWER LEG SWELLING PRESENT. WILL CONTINUE PLAN OF CARE CALL LIGHT IN REACH. BED LOWERED AND LOCKED. BED RAILS UPX2.
[2019-10-09 03:33] VITALS: BP 170/50; BMI 28.4
--- NOTE | 2019-10-09 08:00 | NUR ---
ALERT ADN ORIENTED X4. ABDOMEN GUARDED WITH GENERALIZED TENDERNESS WITH BOWEL SOUNDS NOTED X4. MORPHINE GIVEN PRN AND EFFECTIVE FOR PAIN MANAGEMENT. IVF INFUSING AT PRESCRIBED RATE. ENCOURAGED TO USE CALL LIGHT FOR ASSSIT.
[2019-10-09 09:30] VITALS: BP 113/62
[2019-10-09 13:50] VITALS: BP 105/67
[2019-10-09 14:15] LABS: BASOPHILS 0.1 % (0-2); EOSINOPHILS 0.8 % (0-7); HEMATOCRIT 37.2 % (36.0-48.0); HEMOGLOBIN 12.2 g/dL (12-16); IMMATURE GRANULOCYTES 0.9 % (0-5); LYMPHOCYTES 17.5 % (15-50); MCH 30.4 pg (26.0-34.0); MCHC 32.8 g/dL (31.0-37.0); MCV 92.8 fL (80.0-100.0); MEAN PLATELET VOLUME 9.3 fL (7.4-10.4); MONOCYTES 4.7 % (2-11); PLATELET COUNT 195 10x3/uL (130-400); RBC 4.01 10x6/uL (4.00-5.40); RDW 13.7 % (11.5-14.5); WBC 9.8 10x3/uL (4.8-10.8)
[2019-10-09 14:31] LABS: ALBUMIN 2.5 g/dL (3.4-5.0); ANION GAP 10.5 mmol/L (8-16); BILIRUBIN - TOTAL 0.37 mg/dL (0.2-1.3); CARBON DIOXIDE 26.9 mmol/L (21.0-32.0); CREATININE - SERUM 0.9 mg/dL (0.6-1.3); POTASSIUM - SERUM 4.4 mmol/L (3.5-5.1); PROTEIN - SERUM 5.7 g/dL (6.4-8.2)
[2019-10-09 17:37] VITALS: BP 142/58
[2019-10-09 20:00] VITALS: BP 106/57
[2019-10-10] VITALS: BP 119/56
--- NOTE | 2019-10-10 03:00 | NUR ---
I have reviewed this patient and I concur with the Shift Assessment completed by the Licensed Practical Nurse today this shift.
[2019-10-10 04:00] VITALS: BP 107/70
--- NOTE | 2019-10-10 05:22 | NUR ---
PT RESTING IN BED. EYES CLOSED. NO SIGNS OF DISTRESS. BREATHING EVEN AND UNLABORED. IV SITE RT AC DRESSING CLEAN DRY AND INTACT. NO SIGNS OF INFECTION OR INFULTRATION. LUNG SOUNDS CLEAR. BOWEL SOUNDS ACTIVE. 3 ABD LAP SITES CLEAN DRY AND INTACT. NO SIGNS OF INFECTION. ABD TENDER TO PALPATION PT STATES MORE ON THE RT SIDE THAN THE LT. WILL CONTINUE PLAN OF CARE. CALL LIGHT IN REACH. BED LOWERED AND LOCKED. BED RAILS UPX2.
[2019-10-10 06:43] LABS: BASOPHILS 0.1 % (0-2); EOSINOPHILS 1.5 % (0-7); HEMOGLOBIN 12.6 g/dL (12-16); IMMATURE GRANULOCYTES 0.9 % (0-5); LYMPHOCYTES 25.7 % (15-50); MCH 30.2 pg (26.0-34.0); MCHC 32.3 g/dL (31.0-37.0); MCV 93.5 fL (80.0-100.0); MONOCYTES 6.3 % (2-11); NEUTROPHILS 65.5 % (40-80); PLATELET COUNT 221 10x3/uL (130-400); RBC 4.17 10x6/uL (4.00-5.40); RDW 13.8 % (11.5-14.5); WBC 8.7 10x3/uL (4.8-10.8)
[2019-10-10 07:26] LABS: ANION GAP 15.3 mmol/L (8-16); CALCIUM 8.4 mg/dL (8.5-10.1); CARBON DIOXIDE 22.1 mmol/L (21.0-32.0); CREATININE - SERUM 0.9 mg/dL (0.6-1.3); POTASSIUM - SERUM 4.4 mmol/L (3.5-5.1)
[2019-10-10 08:48] VITALS: BP 95/52
[2019-10-10 13:01] VITALS: BP 98/68
--- NOTE | 2019-10-10 16:31 | NUR ---
PATIENT RESTING IN BED, REPORTS BM TODAY WITH NO DIARRHEA, REPORTS NAUSEA WITH NO NAUSEA. WILL CONT TO MONITOR
[2019-10-10 16:34] VITALS: BP 108/64
--- NOTE | 2019-10-10 19:00 | NUR ---
BEDSIDE REPORT RECEIVED AND CARE OF PT ASSUMED. PT LYING IN SUPINE POSITION ON HER PHONE AT THIS TIME. IV TO LEFT FA SALINE LOCKED. WILL MONITOR FOR NEEDS.
[2019-10-10 19:46] VITALS: BP 84/43
[2019-10-11] VITALS: BP 91/45
[2019-10-11 04:00] VITALS: BP 107/62
[2019-10-11 06:21] LABS: BASOPHILS 0.2 % (0-2); HEMATOCRIT 38.4 % (36.0-48.0); HEMOGLOBIN 12.7 g/dL (12-16); IMMATURE GRANULOCYTES 1.1 % (0-5); LYMPHOCYTES 24.1 % (15-50); MCH 30.6 pg (26.0-34.0); MCHC 33.1 g/dL (31.0-37.0); MCV 92.5 fL (80.0-100.0); MONOCYTES 6.9 % (2-11); NEUTROPHILS 66.7 % (40-80); PLATELET COUNT 234 10x3/uL (130-400); RBC 4.15 10x6/uL (4.00-5.40); RDW 13.8 % (11.5-14.5); WBC 9.7 10x3/uL (4.8-10.8)
[2019-10-11 06:57] LABS: ALBUMIN 2.9 g/dL (3.4-5.0); ANION GAP 15.7 mmol/L (8-16); BILIRUBIN - TOTAL 0.45 mg/dL (0.2-1.3); CALCIUM 8.3 mg/dL (8.5-10.1); CARBON DIOXIDE 22.5 mmol/L (21.0-32.0); CREATININE - SERUM 0.9 mg/dL (0.6-1.3); MAGNESIUM - SERUM 1.9 mg/dL (1.8-2.4); PHOSPHOROUS 3.3 mg/dL (2.5-4.9); POTASSIUM - SERUM 4.2 mmol/L (3.5-5.1); PROTEIN - SERUM 5.8 g/dL (6.4-8.2)
--- NOTE | 2019-10-11 07:50 | NUR ---
ALERT AND ORIENTED. LUNGS CLEAR BILATERALLY. HEART SOUNDS S1 AND S2 HEARD IN ALL FUENTES. BOWEL SOUNDS ACTIVE X 4. SKIN INTACT WITHOUT REDNESS. IV TO LFA INFILTRATED. REMOVED WITH TIP INTACT. PATIENT STATES "THERE'S NOWHERE ELSE TO POKE." WILL SPEAK WITH MD ABOUT PO ABX IF POSSIBLE. DENIES NEEDS. BED LOW. CALL SARGENT AND PERSONAL ITEMS IN REACH. WILL CONTINUE TO MONITOR.
[2019-10-11 07:52] VITALS: BP 90/57
--- NOTE | 2019-10-11 08:05 | NUR ---
ORTHOSTATIC BP PERFORMED. LYING 100/62. SITTING 120/68. STANDING 92/54. REPORTED TO TESS HERNANDEZ.
--- NOTE | 2019-10-11 08:05 | NUR ---
SPOKE WITH TESS AGEE ABOUT CHANGING IV ABX TO PO D/T INFILTRATED IV. STATES HAVE VASCULAR ACCESS ATTEMPT IV ACCESS AND IF UNABLE WITHOUT PLACING LINE, CALL BACK. VASCULAR ACCESS CONSULT PLACED.
--- NOTE | 2019-10-11 10:42 | NUR ---
NO VASCULAR ACCESS ON WEEKEND AND NOWHERE TO SITE IV. PATIENT HAS BEEN STUCK TWELVE TIMES IN TWO DAYS. CHECKED BY TWO NURSES. DR RYAN, SURGEON, PAGED.
--- NOTE | 2019-10-11 10:45 | NUR ---
DR RYAN STATES CHANGE IV ABX TO PO. STATES LEVAQUIN 750MG DAILY X 7 DAYS. FLAGYL 500MG PO Q8HR X 7 DAYS. STATES LEAVE IV OUT FOR NOW.
[2019-10-11 11:54] VITALS: BP 103/55
--- NOTE | 2019-10-11 12:35 | NUR ---
RESTING IN BED. DENIES NEEDS. WILL CONTINUE TO MONITOR.
[2019-10-11 16:07] VITALS: BP 98/69
--- NOTE | 2019-10-11 17:44 | NUR ---
CTA ORDERED. PATIENT NEEDS 18 OR 20G IV. NO IV ACCESS. SPOKE WITH TESS HUFFMAN WHO STATES NEED IV ACCESS BUT CAN WAIT UNTIL AM IF VASCULAR ACCESS NEEDS TO PLACE LINE AND SURGEON CANNOT PLACE. STATES TO CALL SURGEON. DR CONNOR CALIXTO.
--- NOTE | 2019-10-11 17:46 | NUR ---
DR RYAN STATES WILL COME EARLY IN AM TO PLACE LINE.
--- NOTE | 2019-10-11 18:49 | NUR ---
RESTING IN BED. DENIES NEEDS. BED LOW. CALL SARGENT AND PERSONAL ITEMS IN REACH.
--- NOTE | 2019-10-11 19:00 | NUR ---
BEDSIDE REPORT RECEIVED AND CARE OF PT ASSUMED. PT LYING IN LOW ARAIZA'S POSITION TALKING ON THE PHONE. NO IV AT THIS TIME. TELEMETRY IN PLACE AND READING SR AT THIS ASSESSMENT. WILL MONITOR FOR NEEDS.
[2019-10-11 20:00] VITALS: BP 106/70
--- NOTE | 2019-10-11 20:49 | NUR ---
HS MEDICATIONS GIVEN.
--- NOTE | 2019-10-11 21:11 | NUR ---
APPLIED NICODERM PATCH TO RIGHT UPPER ARM. PLACED ORDER PER PROTOCAL.
[2019-10-12] VITALS: BP 99/54
[2019-10-12 04:00] VITALS: BP 97/57
[2019-10-12 04:52] LABS: BASOPHILS 0.2 % (0-2); EOSINOPHILS 1.7 % (0-7); HEMATOCRIT 39.2 % (36.0-48.0); HEMOGLOBIN 13.1 g/dL (12-16); IMMATURE GRANULOCYTES 1.2 % (0-5); LYMPHOCYTES 26.5 % (15-50); MCH 30.8 pg (26.0-34.0); MCHC 33.4 g/dL (31.0-37.0); MCV 92.2 fL (80.0-100.0); MONOCYTES 7.4 % (2-11); PLATELET COUNT 250 10x3/uL (130-400); RBC 4.25 10x6/uL (4.00-5.40); RDW 13.8 % (11.5-14.5)
[2019-10-12 05:05] LABS: APTT 24.8 SECONDS (22.8-39.4); INR 0.93 (0.85-1.17); PROTIME 12.4 SECONDS (11.6-15.0)
[2019-10-12 05:18] LABS: ALBUMIN 2.9 g/dL (3.4-5.0); ANION GAP 13.9 mmol/L (8-16); BILIRUBIN - TOTAL 0.22 mg/dL (0.2-1.3); CALCIUM 8.3 mg/dL (8.5-10.1); CARBON DIOXIDE 21.9 mmol/L (21.0-32.0); PHOSPHOROUS 3.2 mg/dL (2.5-4.9); POTASSIUM - SERUM 3.8 mmol/L (3.5-5.1); PROTEIN - SERUM 6.3 g/dL (6.4-8.2)
--- NOTE | 2019-10-12 07:30 | NUR ---
PATIENT CO OF SOME NAUSEA. ZOFRAN WILL BE PROVIDED. CL IN REACH. WCTM NO FURTHER NEEDS AT THIS TIME. WCTM
[2019-10-12 08:40] VITALS: BP 127/74
[2019-10-12 12:12] VITALS: BP 101/60
[2019-10-12 13:11] VITALS: Ht 172.7 cm; Wt 84.8 kg
[2019-10-12 16:01] VITALS: BP 94/56
--- NOTE | 2019-10-12 19:00 | NUR ---
BEDSIDE REPORT RECEIVED AND CARE OF PT ASSUMED. PT AMBULATING IN ROOM AT THIS TIME. IV TO LEFT AC SALINE LOCKED. TELEMETRY IN PLACE AND READING SR AT THIS ASSESSMENT. WILL MONITOR FOR NEEDS.
[2019-10-12 20:00] VITALS: BP 97/57
--- NOTE | 2019-10-12 20:26 | NUR ---
HS MEDICATIONS GIVEN. WILL CONTINUE TO MONITOR FOR NEEDS.
[2019-10-13] VITALS: BP 102/54
[2019-10-13 04:00] VITALS: BP 91/49
[2019-10-13 05:37] LABS: BASOPHILS 0.2 % (0-2); EOSINOPHILS 0.8 % (0-7); HEMATOCRIT 39.3 % (36.0-48.0); HEMOGLOBIN 13.1 g/dL (12-16); IMMATURE GRANULOCYTES 1.1 % (0-5); LYMPHOCYTES 21.6 % (15-50); MCH 30.8 pg (26.0-34.0); MCHC 33.3 g/dL (31.0-37.0); MCV 92.3 fL (80.0-100.0); MEAN PLATELET VOLUME 9.8 fL (7.4-10.4); NEUTROPHILS 70.3 % (40-80); PLATELET COUNT 246 10x3/uL (130-400); RBC 4.26 10x6/uL (4.00-5.40); RDW 13.8 % (11.5-14.5)
[2019-10-13 05:42] LABS: WBC 11.4 10x3/uL (4.8-10.8)
[2019-10-13 06:30] LABS: ANION GAP 14.6 mmol/L (8-16); BILIRUBIN - TOTAL 0.24 mg/dL (0.2-1.3); CALCIUM 8.3 mg/dL (8.5-10.1); CARBON DIOXIDE 22.6 mmol/L (21.0-32.0); CREATININE - SERUM 1.1 mg/dL (0.6-1.3); MAGNESIUM - SERUM 1.9 mg/dL (1.8-2.4); PHOSPHOROUS 3.9 mg/dL (2.5-4.9); POTASSIUM - SERUM 4.2 mmol/L (3.5-5.1); PROTEIN - SERUM 5.8 g/dL (6.4-8.2)
[2019-10-13 09:11] VITALS: BP 105/66
[2019-10-13 12:35] LABS: LDL-HDL RATIO 2.6 ratio (1.5-3.5)
[2019-10-13 13:31] VITALS: BP 121/89
[2019-10-13 14:38] LABS: CREATINE KINASE 19 UL (21-215); TROPONIN-I 0.054 ng/mL (0.000-0.060)
[2019-10-13] MEDS ORDERED: FLAGYL500 MG PO (15:15)
[2019-10-13] MEDS ORDERED: Levaquin PO (15:15)
[2019-10-13] MEDS ORDERED: ASPIRIN325 MG PO (15:16)
[2019-10-13] MEDS ORDERED: PRAVACHOL20 MG PO (16:44)
--- NOTE | 2019-10-13 17:08 | MORECARE ---
CASE MANAGEMENT DISCHARGE SUMMARY PATIENT: JOCY DAWN UNIT: [id number] ADM DATE: 10/09/19 AGE: 48 : 68 SEX: F ROOM/BED: D.2205 AUTHOR: MARCELINO CEDENO PHYSICIAN: REFERRING PHYSICIAN: RYNE RYAN MD DATE OF SERVICE: 10/13/19 Discharge Plan Patient Name: JCOY DAWN [facility] [facility] 1970 Planned Disposition: Home or Self Care Anticipated Discharge Date: Discharge Date: Expected LOS: Initial Reviewer: [email or web address] Initial Review Date: 10/09/2019 Generated: 10/13/19 6:07 pm DCPIA - Discharge Planning Initial Assessment Updated by [email or web address]: Mary Martinez on 10/13/19 5:06 pm * PCP TER[facility] * [facility] * Preadmission Environment Home with Family * ADLs Independent * Equipment Rolling Walker * List name and contact numbers for known caregivers / representatives who currently or will assist patient after discharge: LEO SNIDER [phone] * Verbal permission to speak to the caregivers and representatives has been obtained from the patient. Yes * Community resources currently utilized None * Additional services required to return to the preadmission environment? No * Can the patient safely return to the preadmission environment? Yes * Has this patient been hospitalized within the prior 30 days at any hospital? Yes Patient Name: JOCY DAWN Page [id number] at 1708 All edits/amendments must be made on the electronic document DICTATION DATE: 10/13/191706 DIRECTOR FINANCIAL SYSTEMS: ELVIN 10/13/191706 RPT#: [id number] DC DATE: STATUS: ADM IN [facility] [address] [place] [address] END OF REPORT
--- NOTE | 2019-10-13 17:16 | MORECARE ---
CASE MANAGEMENT DISCHARGE SUMMARY PATIENT: JOCY DAWN UNIT: [id number] ADM DATE: 10/09/19 AGE: 48 : 68 SEX: F ROOM/BED: D.2205 AUTHOR: WILIAN,DOC PHYSICIAN: REFERRING PHYSICIAN: RYNE RYAN MD DATE OF SERVICE: 10/13/19 Discharge Plan Patient Name: JOCY DAWN Facility: [facility]:[place] : 1970 Planned Disposition: Home or Self Care Anticipated Discharge Date: Discharge Date: Expected LOS: Initial Reviewer: [email or web address] Initial Review Date: 10/09/2019 Generated: 10/13/19 6:15 pm Comments DCP- Discharge Planning Updated by [email or web address]: Mary Martinez on 10/13/19 4:[address] Patient Name: JOCY DAWN Admission Status: ER Accout number: [id number] Admission Date: 10-09-2019 : 1970 Admission Diagnosis: Attending: RYNE RYAN Current LOS: 4 Anticipated DC Date: Planned Disposition: Home or Self Care Primary Insurance: [employer] EXCHANGE Discharge Planning Comments: CM met with patient to complete initial dc planning assessment. CM educated patient on the CM role and verbal consent given by patient to complete assessment. Patient lives at home with her roommate where she is independent with her care. At discharge patient plans to return home and feels this is a safe discharge. CM discussed availability of home health, rehab services, and medical equipment. She has a walker at home. She did not want home health and stated that she was going to see Dr Domingo tomorrow. Patient denied known discharge needs at this time. CM will continue to follow and will assist as needed with dc plans/needs. Hearing Impaired Teacher: Mary Martinez DCPIA - Discharge Planning Initial Assessment Updated by [email or web address]: Mary Martinez on 10/13/19 5:06 pm * PCP TERENCE * [facility]acy [facility] [address] * Preadmission Environment Home with Family * ADLs Independent * Equipment Rolling Walker * List name and contact numbers for known caregivers / representatives who currently or will assist patient after discharge: LEO TYLOR [phone] * Verbal permission to speak to the caregivers and representatives has been obtained from the patient. Yes * Community resources currently utilized None * Additional services required to return to the preadmission environment? No * Can the patient safely return to the preadmission environment? Yes * Has this patient been hospitalized within the prior 30 days at any hospital? Yes Last DP export: 10/13/19 4:07 pm Patient Name: JOCY DAWN Page [phone] at 1716 All edits/amendments must be made on the electronic document DICTATION DATE: 10/13/191714 RE ETCHER: ELVIN 10/13/191714 RPT#: [id number] DC DATE: STATUS: ADM IN [facility] [address] [place] [address] END OF REPORT
--- NOTE | 2019-10-13 17:37 | NUR ---
IV THERAPY DC'ED FROM LEFT AC WITH TIP INTACT. DISCHARGE INSTRUCTIONS GIVEN AND PATIENT AND FRIEND VERBALIZED UNDERSTANDING. WHEELED OUT FRONT MYSELF.
--- NOTE | 2019-10-14 08:19 | EC ---
PATIENT:JOCY DAWN DATE OF SERVICE: 10/09/19 SEX: F MEDICAL RECORD: [id number] DATE OF : 68 LOCATION:D.MS [facility] AGE OF PATIENT: 48 ADMISSION DATE: 10/09/19 REFERRING PHYSICIAN: INTERPRETING PHYSICIAN: RAISA AMBROSIO MD ECHOCARDIOGRAM REPORT ECHO CHARGES 4 ECHO COMPLETE Date: 10/12/19 CLINICAL DIAGNOSIS: DIZZINESSS,SYNCOPE ECHOCARDIOGRAPHIC MEASUREMENTS (adult normal given) AC root (d.<3.7cm) 3.5 cm LV Septum d (<1.2 cm> 1.1 cm Valve Excursion 1.9 cm LV Septum (systole) 1.2 cm Left Atria (s.<4.0cm> 3.8 cm LVPW d(<1.2cm) 1.3 cm RV (d.<2.3cm) 4.0 cm LVPW (sytole) 1.5 cm LV diastole(<5.6CM) 4.6 cm MV E-F(>70mm/sec) cm LV systole 3.3 cm LVOT Diameter 1.8 cm MV exc.(>10mm) 1.2 cm Est.ejection fraction (50-75%) % DOPPLER: LVIT cm/sec A 72.0 cm/sec E 57.0 cm/sec LA cm/sec RVSP 26 mmHg LVOT 107 cm/sec AOP1/2T m/s Asc. Ao 128 cm/sec RVOT 74 cm/sec RA cm/sec PA 116 cm/sec AV Gradient Peak 6.51 mmHg AV Mean 3.78 mmHg AV Area 2.3 cm MV Gradient Peak 5.77 mmHg MV Mean 2.22 mmHg MV Area cm COMMENTS: Compliance Officer: 2 DWAYNE PALM Aviation Operations Specialist: 3 Dr. Tanner TAPE# PACS Pericardial Effusion N DATE OF SERVICE: Adequate 2D, color flow imaging, spectral Doppler, and M-Mode. No LVH. LV internal dimension is normal. Wall motion is normal. EF is greater than or equal to 55%. Aortic valve is tricuspid. No evidence of stenosis by Doppler interrogation. Left atrium is normal. Mitral valve shows no prolapse. Trace MR. Right-sided chambers are grossly normal. Trace TR. TRANSINT:[id number] Voice Confirmation ID: [id number] DOCUMENT ID: [id number] ECHOCARDIOGRAM REPORT [id number] JOCY DAWN GREGORY A MD at 0819 CC: [id number] DICTATION DATE: 10/13/19 1257 SALES OPERATIONS ANALYST: 10/13/19 1446 DIS IN 10/13/19 [facility] [id number] [place] [address]
--- NOTE | 2019-10-15 12:33 | MORECARE ---
CASE MANAGEMENT DISCHARGE SUMMARY PATIENT: JOCY DAWN UNIT: [id number] ADM DATE: 10/09/19 AGE: 48 : 68 SEX: F ROOM/BED: D.2205 AUTHOR: WILIAN,DOC PHYSICIAN: REFERRING PHYSICIAN: RYNE RYAN MD DATE OF SERVICE: 10/15/19 Discharge Plan Patient Name: JOCY DAWN Facility: [facility]:[place] : 1970 Planned Disposition: Home or Self Care Anticipated Discharge Date: Discharge Date: 10/13/2019 Expected LOS: 0 Initial Reviewer: [email or web address] Initial Review Date: 10/09/2019 Generated: 10/15/19 1:33 pm Comments DCP- Discharge Planning Updated by [email or web address]: Mary Martinez on 10/13/19 4:[address] Patient Name: JOCY DAWN Admission Status: ER Accout number: [id number] Admission Date: 10-09-2019 : 1970 Admission Diagnosis: Attending: RYNE RYAN Current LOS: 4 Anticipated DC Date: Planned Disposition: Home or Self Care Primary Insurance: [employer] EXCHANGE Discharge Planning Comments: CM met with patient to complete initial dc planning assessment. CM educated patient on the CM role and verbal consent given by patient to complete assessment. Patient lives at home with her roommate where she is independent with her care. At discharge patient plans to return home and feels this is a safe discharge. CM discussed availability of home health, rehab services, and medical equipment. She has a walker at home. She did not want home health and stated that she was going to see Dr Domingo tomorrow. Patient denied known discharge needs at this time. CM will continue to follow and will assist as needed with dc plans/needs. Financial Aid Administrator: Mary Martinez DCPIA - Discharge Planning Initial Assessment Updated by [email or web address]: Mary Martinez on 10/13/19 5:06 pm * PCP TERENCE * [facility]acy [facility] [address] * Preadmission Environment Home with Family * ADLs Independent * Equipment Rolling Walker * List name and contact numbers for known caregivers / representatives who currently or will assist patient after discharge: LEO SNIDER [phone] * Verbal permission to speak to the caregivers and representatives has been obtained from the patient. Yes * Community resources currently utilized None * Additional services required to return to the preadmission environment? No * Can the patient safely return to the preadmission environment? Yes * Has this patient been hospitalized within the prior 30 days at any hospital? Yes Last DP export: 10/13/19 4:16 pm Patient Name: JOCY DAWN Page 72079 at 1233 All edits/amendments must be made on the electronic document DICTATION DATE: 10/15/19 1233 CYBER SECURITY MANAGER: ELVIN 10/15/19 1233 RPT#: [id number] DC DATE:10/13/19 STATUS: DIS IN [facility] [address] [place] [address] END OF REPORT
== END 2019-10-13 17:38 | disposition home or self-care (01) | DRG 391 ==
LOC: D.ER 20:52 → D.MS 10-09 01:15
PROVIDERS: Emergency Medicine; Family Medicine; Internal Medicine Nephrology; ADMIT Surgery; ATTEND Surgery
DX: K52.9 Noninfective gastroenteritis and colitis, unspecified (principal); I63.9 Cerebral infarction, unspecified; F17.203 Nicotine dependence unspecified, with withdrawal; R55 Syncope and collapse; I80.8 Phlebitis and thrombophlebitis of other sites; E86.0 Dehydration; K21.9 Gastro-esophageal reflux disease without esophagitis; J45.909 Unspecified asthma, uncomplicated; I25.2 Old myocardial infarction

== ENCOUNTER → 2019-10-26 12:59 | Outpatient (CLI) | payer MEDICAID ==
[2019-10-12 13:11] VITALS: BMI 28.4
[~2019-10-26 12:59] MED LIST changes: +ASPIRIN325 MG PO; +FLAGYL500 MG PO; +Levaquin PO; +PRAVACHOL20 MG PO
== END | disposition home or self-care (01) ==
LOC: D.HCCARDIO 10:30
PROVIDERS: ATTEND Internal Medicine Cardiovascular Disease
DX: Z03.89 Encounter for observation for other suspected diseases and conditions ruled out (principal)

== ENCOUNTER → 2020-04-01 12:21 | Outpatient (CLI) | payer MEDICAID ==
[2019-10-12 13:11] VITALS: BMI 28.4
[2020-04-01 13:14] LABS: CREATININE - SERUM 1.1 mg/dL (0.6-1.3)
== END | disposition home or self-care (01) ==
LOC: D.LAB 12:21 → D.US 13:00 → D.RT 15:00
PROVIDERS: ATTEND Internal Medicine Pulmonary Disease
DX: I26.99 Other pulmonary embolism without acute cor pulmonale (principal); Z86.718 Personal history of other venous thrombosis and embolism; R60.0 Localized edema

== ENCOUNTER → 2020-04-04 12:38 | Outpatient (CLI) | payer MEDICAID ==
[2019-10-12 13:11] VITALS: BMI 28.4
[2020-04-04 13:11] LABS: BASOPHILS 0.3 % (0-2); EOSINOPHILS 0.8 % (0-7); HEMATOCRIT 43.1 % (36.0-48.0); IMMATURE GRANULOCYTES 0.7 % (0-5); LYMPHOCYTES 38.1 % (15-50); MCHC 32.5 g/dL (31.0-37.0); MCV 92.5 fL (80.0-100.0); MEAN PLATELET VOLUME 10.2 fL (7.4-10.4); MONOCYTES 3.6 % (2-11); NEUTROPHILS 56.5 % (40-80); PLATELET COUNT 237 10x3/uL (130-400); RBC 4.66 10x6/uL (4.00-5.40); RDW 14.6 % (11.5-14.5); WBC 7.5 10x3/uL (4.8-10.8)
[2020-04-04 13:54] LABS: ALBUMIN 3.7 g/dL (3.4-5.0); ANION GAP 9.9 mmol/L (8-16); BILIRUBIN - TOTAL 0.3 mg/dL (0.2-1.3); CALCIUM 8.4 mg/dL (8.5-10.1); CARBON DIOXIDE 25.2 mmol/L (21.0-32.0); POTASSIUM - SERUM 4.1 mmol/L (3.5-5.1); PROTEIN - SERUM 6.6 g/dL (6.4-8.2)
[2020-04-05 14:10] LABS: CA125 17.8 U/mL (0.0-38.1); CEA 1.8 ng/mL (0.0-4.7)
== END | disposition home or self-care (01) ==
LOC: D.LAB 12:38
PROVIDERS: ATTEND Internal Medicine Hematology & Oncology
DX: D68.9 Coagulation defect, unspecified (principal); E87.1 Hypo-osmolality and hyponatremia; K57.32 Diverticulitis of large intestine without perforation or abscess without bleeding

== ENCOUNTER → 2020-04-12 14:57 | Outpatient (CLI) | payer MEDICAID ==
[2019-10-12 13:11] VITALS: BMI 28.4
== END | disposition home or self-care (01) ==
LOC: D.LAB 14:57
PROVIDERS: ATTEND Internal Medicine Pulmonary Disease
DX: Z13.9 Encounter for screening, unspecified (principal)